=== PATIENT | male | born 1965 | race Caucasian/White ===

== ENCOUNTER 2021-09-10 13:16 | Emergency (ER) | payer SELFPAY ==
[~2021-09-10] VITALS: Ht 157.5 cm; Wt 69.4 kg
[2021-09-10 13:21] VITALS: BP 161/91
--- NOTE | 2021-09-10 13:27 | NUR ---
PT AMBULATED TO BED
[2021-09-10] MEDS ORDERED: KETOROLAC 30 MG/ML VIAL IVP ONE (13:30)
[2021-09-10] MEDS ORDERED: NACL 0.9% 1,000 ML IV SCH (13:30)
--- NOTE | 2021-09-10 13:45 | NUR ---
BLOOD LABS GIVEN TO CPT
--- NOTE | 2021-09-10 13:47 | NUR ---
52 Y/O MALE C/O RLQ ABD PAIN X3 DAYS. DENIES ANY RECENT FEVER, DENIES N/V. PT STATES "PULSATING" PAIN, INTERMITTENT, NON RADIATING. ABD SOFT, TENDER TO TOUCH. LUNG SOUNDS CLEAR. DENIES ANY CONSTIPATION/DIARRHEA MEDHX: HTN, PRE-DIABETIC NKA
--- NOTE | 2021-09-10 13:47 | NUR ---
PT TAKEN TO CT SCAN VIA W/C
[2021-09-10 13:52] LABS: APPEARANCE,URINE CLEAR (CLEAR); BILIRUBIN,URINE NEGATIVE (NEGATIVE); BLOOD, URINE NEGATIVE (NEGATIVE); COLOR,URINE YELLOW (YELLOW); LEUKOCYTE ESTERASE ,URINE TRACE (NEGATIVE); NITRITE, URINE NEGATIVE (NEGATIVE); PH,URINE 5.5 (5.0-9.0); UGLUCOSE 1+ (NEGATIVE)
[2021-09-10 13:56] LABS: RBC,URINE 0-5 /HPF (0-5); WBC,URINE 0-5 /HPF (0-5)
--- NOTE | 2021-09-10 13:59 | NUR ---
Patient returned from CT by wheelchair
[2021-09-10 14:03] LABS: BASOPHILS % (AUTO) 0.5 % (0.0-2.0); EOSINOPHILS # (AUTO) 0.1 K/uL (0-0.4); EOSINOPHILS % (AUTO) 0.8 % (0.0-4.0); HEMOGLOBIN 15.3 g/dL (12.0-18.0); LYMPHOCYTES # (AUTO) 2.5 K/uL (2.0-11.5); LYMPHOCYTES % (AUTO) 39.5 % (20.5-51.1); MEAN CORPUSCULAR HEMOGLOBIN 34 pg (27-31); MEAN CORPUSCULAR HGB CONC 35 g/dL (33-37); MEAN CORPUSCULAR VOLUME 96.5 fL (80-94); MONOCYTES # (AUTO) 0.4 K/uL (0.8-1.0); MONOCYTES % (AUTO) 5.6 % (1.7-9.3); NEUTROPHILS # (AUTO) 3.4 K/uL (1.8-7.7); NEUTROPHILS % (AUTO) 53.6 % (42.2-75.2); PLATELET COUNT (AUTO) 221 K/uL (140-450); RED BLOOD CELL COUNT(AUTO) 4.56 MIL/uL (4.20-6.10); RED CELL DISTRIBUTION WIDTH 13.2 % (11.6-13.7); WHITE BLOOD COUNT (AUTO) 6.4 K/uL (4.8-10.8)
[2021-09-10 14:07] LABS: ANION GAP 6.5 (8-16); CARBON DIOXIDE 24.3 mmol/L (21-32); CREATININE 0.8 mg/dL (0.6-1.3); POTASSIUM 3.8 mmol/L (3.5-5.1); TOTAL BILIRUBIN 0.8 mg/dL (0.0-1.0)
[2021-09-10] MEDS ORDERED: IBUP-2213 PO (15:04)
[2021-09-10] MEDS ORDERED: ALUM355S59 PO (15:04)
[2021-09-10 15:18] VITALS: BP 148/87
--- NOTE | 2021-09-10 15:23 | NUR ---
Patient discharged with v/s stable. Written and verbal after care instructions given and explained. Patient alert, oriented and verbalized understanding of instructions. Ambulatory with steady gait. All questions addressed prior to discharge. ID band removed. Patient advised to follow up with PMD. Rx of Mag Hydrox/Al Hydrox/Simeth, Ibuprofen given. Patient educated on indication of medication including possible reaction and side effects. Opportunity to ask questions provided and answered.
== END 2021-09-10 15:23 | disposition home or self-care (01) ==
LOC: MED 13:16
DX: K57.90 Diverticulosis of intestine, part unspecified, without perforation or abscess without bleeding (principal); I10 Essential (primary) hypertension; Z79.899 Other long term (current) drug therapy
CPT/HCPCS: 36415; 74176; 80053; 81001; 83690; 85025; 96361; 96374; 99284; J1885; J7030

== ENCOUNTER 2022-08-13 14:37 | Emergency (ER) | payer SELFPAY ==
[~2022-08-13] VITALS: Ht 170.2 cm; Wt 68.0 kg
[~2022-08-13 14:37] MED LIST: ALUM355S59 PO; IBUP-2213 PO
[2022-08-13 14:47] VITALS: BP 138/75
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
[2022-08-13] MEDS ORDERED: IBUP-2213 PO (15:40)
--- NOTE | 2022-08-13 16:30 | NUR ---
Patient discharged with v/s stable. Written and verbal after care instructions about head injury given and explained. Patient alert, oriented and verbalized understanding of instructions. Ambulatory with steady gait. All questions addressed prior to discharge. ID band removed. Patient advised to follow up with PMD. Rx of Ibuprofen given. Patient educated on indication of medication including possible reaction and side effects. Opportunity to ask questions provided and answered.
== END 2022-08-13 16:30 | disposition home or self-care (01) ==
LOC: MED 14:37
DX: S00.03XA Contusion of scalp, initial encounter (principal); V49.88XA Car occupant (driver) (passenger) injured in other specified transport accidents, initial encounter; Y93.89 Activity, other specified; Y92.89 Other specified places as the place of occurrence of the external cause; Y99.8 Other external cause status
CPT/HCPCS: 99282